=== PATIENT | male | born 1950 | race Caucasian/White ===

== ENCOUNTER → 2019-03-06 | Day surgery (SDC) | payer MEDICARE, OTHER ==
[2019-03-02 17:02] LABS: BASOPHILS # (AUTO) 0.1 (0.0-0.1); BASOPHILS % 1.3 % (0.0-1.0); EOSINOPHILS # (AUTO) 0.2 (0.0-0.4); EOSINOPHILS % 2.8 % (0.0-6.0); HEMATOCRIT 43.2 % (38.2-49.6); HEMOGLOBIN 14.7 g/dL (14.0-18.0); LYMPHOCYTES # (AUTO) 1.5 (1.0-3.2); LYMPHOCYTES % 21.8 % (18.0-39.1); MEAN CORPUSCULAR HEMOGLOBIN 30.2 pg (28-32); MEAN CORPUSCULAR VOLUME 88.7 fL (81-99); MONOCYTES # (AUTO) 0.7 (0.2-0.8); MONOCYTES % 9.6 % (4.4-11.3); NEUTROPHILS # (AUTO) 4.5 (2.1-6.9); NEUTROPHILS % 64.2 % (38.7-80.0); PLATELET COUNT 249 x10e3/uL (140-360); RED BLOOD COUNT 4.87 x10e6/uL (4.3-5.7); RED CELL DISTRIBUTION WIDTH 12.7 % (11.7-14.4)
[2019-03-02 17:21] LABS: ANION GAP 16.7 mmol/L (8-16); BLOOD UREA NITROGEN 9 mg/dL (7-26); BUN/CREATININE RATIO 11 (6-25); CARBON DIOXIDE 26 mmol/L (22-29); CHLORIDE 99 mmol/L (98-107); CREATININE, SERUM 0.82 mg/dL (0.72-1.25); EST GLOMERULAR FILTRATION RATE > 60 ML/MIN (60-); GLUCOSE 102 mg/dL (74-118); POTASSIUM 3.7 mmol/L (3.5-5.1); SODIUM 138 mmol/L (136-145)
[~2019-03-06] MED LIST: AZOR 10-20 MG1 EACH PO; BUPIVACAINE HCL 0.5% INJ 30 ML VIAL INJ ONE; CARVEDILOL12.5 MG PO; CEFAZOLIN SOD 1 GM/NS 50ML 50 ML IV ONE; DEXAMETHASONE SOD PHOS INJ 4 MG/ML VIAL ONE; EFFIENT10 MG PO; EPHEDRINE SULFATE INJ 50 MG/10 ML SYR ONE; FENTANYL CITRATE/PF 100MCG/2 ML INJ ONE; HYDROCHLOROTH12.5 M1 PO; HYDROMORPHONE 2MG/ML 2 MG/ML ML ONE; LEVOTHYROXINE50 MCG PO; LIDOCAINE HCL 2% LOCAL INJ 5 ML SDV VIAL INJ ONE; ONDANSETRON HCL INJ 2MG/ML 2ML 2 MG/ML VIAL ONE; PRAVASTATIN SOD40 MG PO; PROPOFOL IV EMULSION 10 MG/ML 20 ML VIAL ONE; SEVOFLURANE INHAL SOLN 250 ML PEN BTL ONE
[2019-03-06 08:30] VITALS: BP 131/82
--- NOTE | 2019-03-06 09:28 | Operative Report ---
DATE OF PROCEDURE: SURGEON: Mare Arciniega DPM VACUUM DRUM DRIER OPERATOR SURGEON: Mohammed. Mal Arce DPM PREOPERATIVE DIAGNOSES: 1. Left anterior talofibular ligament rupture. 2. Left calcaneofibular ligament rupture. POSTOPERATIVE DIAGNOSES: 1. Left anterior talofibular ligament rupture. 2. Left calcaneofibular ligament rupture. PLANNED PROCEDURE: Left ankle Brostrom with excision of fracture fragment. VACUUM DRUM DRIER OPERATOR: Jocelyn Arce DPM. ANESTHESIA: General with a postoperative block consisting of 10 mL of 0.5% Marcaine plain mixed with 1 mL of dexamethasone phosphate. HEMOSTASIS: Pneumatic thigh tourniquet set at 350 mmHg for a total time of approximately 30 minutes. MATERIALS: One G2 bone anchor, 3-0 Vicryl, 4-0 nylon. ESTIMATED BLOOD LOSS: Less than 10 mL. PATHOLOGY: None. PROCEDURE NOTE: The patient was seen in the preoperative waiting room. The correct procedure and site was identified. The patient was brought to the operating room, placed on the operating table in supine position. General anesthesia was initiated. At this time, a well-padded pneumatic tourniquet was placed about the patient's left thigh. The left foot, ankle, and leg were then scrubbed, prepped, and draped in the usual aseptic manner. The left foot, ankle, and leg were exsanguinated with an Esmarch bandage and the pneumatic thigh tourniquet was inflated to 350 mmHg for a total time of approximately 30 minutes. Attention was directed to the lateral aspect of the patient's left ankle where a reverse J incision was made starting at the anterior aspect of the fibula extending inferiorly along the inferior border of the fibula. Incision was carried through subcutaneous tissue this from the deep underlying structures. All vital neurovascular structures were identified and retracted medially and laterally. All bleeders were cauterized or ligated as deemed necessary. At this time, along the same course of the incision, a capsular incision was made through the anterior talofibular and calcaneofibular ligaments. It was noted that there was a large bony fragment within the calcaneofibular ligament, which was excised and passed off to the back table. The wound was then copiously irrigated with sterile saline. Next, per manufacture protocol, one G two bone anchor was placed in the fibula and the anterior talofibular ligament as well as the ankle capsule was reapproximated in anatomic tension. The CFL was also reapproximated with 0 Ethibond. The retinaculum as well as the extensor capsule was oversewn in a bkief-vrhc-bmeu fashion. The subcutaneous tissue was reapproximated with 3-0 Vicryl. The skin was closed using simple interrupted sutures with 4-0 nylon. The incision site was dressed with Betadine-soaked Adaptic, 4x4s, Kerlix, , 4 x 30 posterior splint, 4 inch Samm wrap, and a 6-inch Samm wrap. The patient tolerated the procedure and anesthesia well. The patient was transferred to the postop recovery room with vital signs stable and vascular status intact. The patient was monitored there for a short period of time before being sent home with the following written and oral instructions: 1. Keep the dressing clean, dry, and intact. 2. The patient is to remain nonweightbearing to the left lower extremity to avoid any ambulation until being seen in the office. 3. The patient is given the office number to try to contact us if any problems arise. Dictated by Jocelyn Arce DPM S JAYDEN Isidro (Charley)/TYESHA /[id number] TK
== END | disposition home or self-care (01) ==
LOC: OR 05:11
PROVIDERS: ATTEND Podiatrist Foot & Ankle Surgery
DX: S93.492A Sprain of other ligament of left ankle, initial encounter (principal); S93.412A Sprain of calcaneofibular ligament of left ankle, initial encounter; S82.402A Unspecified fracture of shaft of left fibula, initial encounter for closed fracture; I25.10 Atherosclerotic heart disease of native coronary artery without angina pectoris; I11.0 Hypertensive heart disease with heart failure; I50.9 Heart failure, unspecified; E03.9 Hypothyroidism, unspecified; E78.00 Pure hypercholesterolemia, unspecified; F17.210 Nicotine dependence, cigarettes, uncomplicated; X58.XXXA Exposure to other specified factors, initial encounter; Z01.812 Encounter for preprocedural laboratory examination; Z95.5 Presence of coronary angioplasty implant and graft
CPT/HCPCS: 27696; 36415; 80048; 85025; C1713; J0690; J1100; J1170; J2001; J2405; J2704; J3010

== ENCOUNTER 2019-07-10 07:26 | Observation (INO) | payer MEDICARE, OTHER ==
--- NOTE | 2019-07-09 10:23 | Diagnostic Imaging Report ---
Chest, PA and lateral. History: Preoperative evaluation for knee surgery. Comparison: None available. Discussion: The cardiomediastinal silhouette and pulmonary vasculature are within normal limits. The lungs are clear without evidence of consolidation or effusion. There are mild degenerative changes of the thoracic spine. IMPRESSION: No acute cardiopulmonary abnormality. Signed by: Kirby Emerson MD on 07/09/2019 10:20 AM
[2019-07-09 10:27] LABS: BASOPHILS # (AUTO) 0.1 (0.0-0.1); BASOPHILS % 0.9 % (0.0-1.0); EOSINOPHILS # (AUTO) 0.2 (0.0-0.4); EOSINOPHILS % 3.1 % (0.0-6.0); HEMATOCRIT 41.3 % (38.2-49.6); HEMOGLOBIN 13.9 g/dL (14.0-18.0); LYMPHOCYTES # (AUTO) 1.3 (1.0-3.2); LYMPHOCYTES % 19.5 % (18.0-39.1); MEAN CORPUSCULAR HEMOGLOBIN 30.5 pg (28-32); MEAN CORPUSCULAR HGB CONC 33.7 g/dL (31-35); MEAN CORPUSCULAR VOLUME 90.8 fL (81-99); MONOCYTES # (AUTO) 0.6 (0.2-0.8); MONOCYTES % 8.2 % (4.4-11.3); NEUTROPHILS # (AUTO) 4.7 (2.1-6.9); NEUTROPHILS % 67.9 % (38.7-80.0); PLATELET COUNT 251 x10e3/uL (140-360); RED BLOOD COUNT 4.55 x10e6/uL (4.3-5.7); RED CELL DISTRIBUTION WIDTH 12.5 % (11.7-14.4)
[~2019-07-10] VITALS: Ht 172.7 cm; Wt 99.9 kg
[~2019-07-10 07:26] MED LIST changes: +BACITRACIN 50,000 UNIT VIAL ONE; -BUPIVACAINE HCL 0.5% INJ 30 ML VIAL INJ ONE; -CEFAZOLIN SOD 1 GM/NS 50ML 50 ML IV ONE; -DEXAMETHASONE SOD PHOS INJ 4 MG/ML VIAL ONE; -EPHEDRINE SULFATE INJ 50 MG/10 ML SYR ONE; -FENTANYL CITRATE/PF 100MCG/2 ML INJ ONE; +GABAPENTIN300 MG PO; -HYDROMORPHONE 2MG/ML 2 MG/ML ML ONE; -LIDOCAINE HCL 2% LOCAL INJ 5 ML SDV VIAL INJ ONE; -ONDANSETRON HCL INJ 2MG/ML 2ML 2 MG/ML VIAL ONE; -PROPOFOL IV EMULSION 10 MG/ML 20 ML VIAL ONE; -SEVOFLURANE INHAL SOLN 250 ML PEN BTL ONE; +SODIUM CHLORIDE 0.9% 500ML 500 ML ONE; +TRANEXAMIC ACID 1,000 MG/10 ML ML ONE; +VANCOMYCIN HCL 1,000 MG ONE
[2019-07-10] MEDS ORDERED: ROPIVACAINE 246.25 MG, EPINEPHRINE HCL 1:1000 1ML 0.5 MG, CLONIDINE HCL 0.08 MG, KETORO... INJ ONE ×5 (07:30)
[2019-07-10] MEDS ORDERED: CEFAZOLIN SOD 1 GM/NS 50ML 100 ML IV ONE (07:46)
[2019-07-10] MEDS ORDERED: CELECOXIB 200 MG CAP ONE (07:46)
[2019-07-10] MEDS ORDERED: DEXAMETHASONE SOD PHOS 10 MG/1 ML VIAL ONE (07:47)
[2019-07-10] MEDS ORDERED: GABAPENTIN 300 MG CAP ONE (07:47)
[2019-07-10] MEDS ORDERED: HYDROCODONE/APAP 5MG-325MG TAB PO PRN (11:00)
[2019-07-10] MEDS ORDERED: ACETAMINOPHEN 650 MG SUPP PR PRN (11:00)
[2019-07-10] MEDS ORDERED: PROMETHAZINE HCL (IM) 25 MG/ML VIAL INJ PRN (11:00)
[2019-07-10] MEDS ORDERED: DIPHENHYDRAMINE HCL INJ 50 MG/ML VIAL IM/IV PRN (11:00)
[2019-07-10] MEDS ORDERED: KETOROLAC TROMETHAMINE 30 MG/ML VIAL IV PRN (11:00)
[2019-07-10] MEDS ORDERED: DOCUSATE SODIUM 100 MG CAP PO PRN (11:00)
[2019-07-10] MEDS ORDERED: HYDROMORPHONE 2MG/ML 2 MG/ML ML ONE (11:22)
--- NOTE | 2019-07-10 12:36 | Diagnostic Imaging Report ---
EXAM: KNEE LEFT 1-2 VIEWS DATE: 07/10/2019 10:56 AM INDICATION: Postop COMPARISON: None FINDINGS: There are postsurgical changes of recent total knee replacement. Hardware appears intact and in anatomic alignment. There is no evidence for acute fracture or dislocation. There is expected subcutaneous emphysema and suspected small joint effusion present. Overlying skin rachael noted. IMPRESSION: Expected postsurgical changes from recent left knee arthroplasty. Signed by: Dr. Leroy Chau MD on 07/10/2019 12:33 PM
[2019-07-10] MEDS ORDERED: LIDOCAINE HCL 2% LOCAL 20 ML VIAL ONE (12:58)
[2019-07-10] MEDS ORDERED: ROPIVACAINE 0.5% 5 MG/ML 30 ML SDV ONE (12:58)
[2019-07-10] MEDS ORDERED: FENTANYL CITRATE/PF 100MCG/2 ML INJ ONE (13:07)
--- NOTE | 2019-07-10 14:32 | NUR ---
RECEIVED PATIENT FROM PACU. PATIENT A/O X3, EVEN RESPIRATIONS ON 2LNC. LUNG SOUNDS CLEAR TO AUSCULTATION. LEFT KNEE DRESSING CLEAN, DRY, AND INTACT. TAO WRAP TO LEFT LEG. ORA HOSE TO RIGHT LEG. FOOT PUMPS BILATERALLY. LEFT HAND 20 GAUGE IV WITH NS @ 100 CC/HR. NO PAIN AT THIS TIME. PATIENT DUE TO VOID. ORIENTED PATIENT TO ROOM AND CALL LIGHT. BED LOW, WHEELS LOCKED, SIDE RAILS X2. CALL LIGHT IN REACH WILL CONTINUE TO MONITOR PATIENT.
[2019-07-10] MEDS ORDERED: ACETAMINOPHEN 1000 MG/100 ML IV SCH (15:00)
[2019-07-10 15:09] VITALS: BP 122/86
[2019-07-10 15:12] VITALS: BP 122/86
--- NOTE | 2019-07-10 15:14 | NUR ---
PATIENT HAS VOIDED SINCE SURGERY.
[2019-07-10] MEDS: CEFAZOLIN SOD 1 GM/NS 50ML 50 ML IV SCH ×2 (15:58→21:48)
[2019-07-10] MEDS: SODIUM CHLORIDE 0.9% 1000ML 1,000 ML IV SCH ×2 (15:58→20:56)
[2019-07-10 15:59] VITALS: BP 122/86
[2019-07-10] MEDS: CELECOXIB 100 MG CAP PO SCH (16:06)
[2019-07-10] MEDS: ASPIRIN 325 MG TAB PO SCH (16:06)
--- NOTE | 2019-07-10 17:29 | Operative Report ---
DATE OF PROCEDURE: 07/10/2019 SURGEON: Heriberto Davis MD HEALTH COORDINATOR: Roberto Nascimento, certified PA. PREOPERATIVE DIAGNOSIS: Osteoarthritis, left knee. POSTOPERATIVE DIAGNOSIS: Osteoarthritis, left knee. PROCEDURE: Left total knee arthroplasty. INDICATIONS: The patient is a 69-year-old gentleman with end-stage arthritis of his left knee. The findings and options have been discussed. He has failed conservative management and would like to proceed with a left total knee replacement. The risks and benefits have been discussed at length. All of his questions have been answered. He states he understands and wishes to proceed. PROCEDURE IN DETAIL: The patient was brought to the operating room and placed under general anesthetic. He received prophylactic antibiotics, a regional block, and tranexamic acid in the holding area. His left lower extremity was prepped and draped in a sterile manner. A preoperative time-out was performed. The extremity was exsanguinated and a proximal tourniquet was inflated to 300 mmHg. An anterior incision with a medial parapatellar arthrotomy was performed. Clear synovial fluid was removed from the joint. Soft tissue releases were performed to bring the knee up into flexion with the patella everted. Meniscal remnants, marginal osteophytes, and the cruciate ligaments were removed. A Tellez and NephiMeigu knee system was used throughout the case. An extramedullary cutting guide was used to resect the proximal tibia. The tibial base plate was a size #4. The central fin punch was impacted and attention was directed towards the distal femur. An intramedullary cutting guide was used to resect the distal femur in 6 degrees of valgus and rotation referencing off a combination of landmarks including Whitesides line, the epicondylar axis, and the posterior condyles. The femoral component was sized at size #5 component. The anterior and posterior cuts were made. A trial reduction was performed. A 9 mm ultracongruent tibial insert provided appropriate soft tissue balancing and stability in full extension and 90 degrees of flexion. The patella was resurfaced with a 29 mm x 7.5 mm patellar button. The thickness was checked before and after, and was right at 23 mm. Patellar tracking was concentric. The trial implants were then all removed. A 100 mL premixed pericapsular FELICE injection was placed into the surrounding soft tissue. The knee was thoroughly irrigated with a shower tip pulsatile lavage. All bone cuts had been irrigated with a spray mixture of diluted polymyxin and vancomycin spray. The components were cemented into place using a single mix of Palacos cement, preloaded with antibiotics. Care was taken to remove extravasated cement. The wound was further irrigated while the cement cured. The arthrotomy was then closed with #1 Ethibond in interrupted fashion. A 500 mg of vancomycin powder was sprinkled into the deep wound prior to closure. The knee was put through flexion and extension to ensure a secure closure. The skin was closed with subcuticular Vicryl and rachael. A sterile Aquacel bandage was applied. The patient was extubated and transported to the recovery room in stable condition. Blood loss was minimal. All needle and sponge counts were correct. Heriberto Davis MD DR/TYESHA /[id number]
--- NOTE | 2019-07-10 18:10 | NUR ---
PLACED PATIENT ON CPM AT 50. PATIENT TOLERATING WELL.
[2019-07-10] MEDS ORDERED: ONDANSETRON HCL INJ 2MG/ML 2ML 2 MG/ML VIAL ONE (18:11)
[2019-07-10] MEDS ORDERED: LIDOCAINE HCL 2% LOCAL INJ 5 ML SDV VIAL INJ ONE (18:11)
[2019-07-10] MEDS ORDERED: SEVOFLURANE INHAL SOLN 250 ML PEN BTL ONE (18:11)
[2019-07-10] MEDS ORDERED: ROCURONIUM BROMIDE 10 MG/ML 5ML VIAL ONE (18:11)
[2019-07-10] MEDS ORDERED: ESMOLOL HCL 100MG/10ML 10 MG/ML VIAL ONE (18:11)
[2019-07-10] MEDS ORDERED: NEOSTIGMINE 1 MG/ML 10ML VIAL ONE (18:11)
[2019-07-10] MEDS ORDERED: EPHEDRINE SULFATE INJ 50 MG/ML VIAL ONE (18:11)
[2019-07-10] MEDS ORDERED: DEXAMETHASONE SOD PHOS INJ 4 MG/ML VIAL ONE (18:11)
[2019-07-10] MEDS ORDERED: PROPOFOL IV EMULSION 10 MG/ML 20 ML VIAL ONE (18:11)
[2019-07-10] MEDS ORDERED: ATROPINE SULFATE 1 MG/ML VIAL ONE (18:11)
[2019-07-10] MEDS ORDERED: GLYCOPYRROLATE INJ 0.2 MG/ML VIAL ONE (18:11)
[2019-07-10] MEDS: GABAPENTIN 300 MG CAP PO SCH (18:40)
[2019-07-10 19:30] VITALS: BP 142/88
--- NOTE | 2019-07-10 19:56 | NUR ---
Assessment done.no resp.distress.pain voiced 10/08.on cpm @50.tolerate well.uses ics.bed locked and in lowest position.phone and call light within reach.instructed to call for assistance as needed.
[2019-07-10 20:33] VITALS: BP 142/88
[2019-07-10] MEDS ORDERED: ZOLPIDEM TARTRATE 5 MG TAB PO PRN (21:00)
[2019-07-10] MEDS: ACETAMINOPHEN 1000 MG/100 ML IV SCH (21:09)
[2019-07-10] MEDS: ONDANSETRON HCL INJ 2MG/ML 2ML 2 MG/ML VIAL IV PRN (22:14)
--- NOTE | 2019-07-10 22:14 | NUR ---
Has nausea.medicated with zofran 4mg iv.keep monitor the patient.
[2019-07-11] VITALS: BP 134/77
[2019-07-11] MEDS: ACETAMINOPHEN 1000 MG/100 ML IV SCH ×2 (03:28→05:18)
[2019-07-11 04:00] VITALS: BP 148/95
[2019-07-11] MEDS: CEFAZOLIN SOD 1 GM/NS 50ML 50 ML IV SCH (05:03)
[2019-07-11] MEDS: SODIUM CHLORIDE 0.9% 1000ML 1,000 ML IV SCH (05:18)
[2019-07-11 05:37] LABS: HEMATOCRIT 35.7 % (38.2-49.6); HEMOGLOBIN 12.4 g/dL (14.0-18.0)
[2019-07-11] MEDS: ONDANSETRON HCL INJ 2MG/ML 2ML 2 MG/ML VIAL IV PRN (05:43)
[2019-07-11] MEDS ORDERED: CHLORASEPTIC SPRAY 177 ML BTL MM PRN (05:45)
[2019-07-11] MEDS ORDERED: BISACODYL 5 MG TAB EC PO PRN (05:45)
[2019-07-11] MEDS ORDERED: GUAIFENESIN 600 MG TAB PO PRN (05:45)
[2019-07-11] MEDS ORDERED: ALBUTEROL/IPRATROPIUM 3 ML NEB NEB PRN (05:45)
--- NOTE | 2019-07-11 06:00 | NUR ---
PUT CPM ON @ 50 FLEXION DEGREE.TOLERATE WELL.
[2019-07-11 06:12] LABS: ANION GAP 13.5 mmol/L (8-16); BLOOD UREA NITROGEN 10 mg/dL (7-26); BUN/CREATININE RATIO 12 (6-25); CARBON DIOXIDE 27 mmol/L (22-29); CHLORIDE 93 mmol/L (98-107); CREATININE, SERUM 0.82 mg/dL (0.72-1.25); EST GLOMERULAR FILTRATION RATE > 60 ML/MIN (60-); GLUCOSE 145 mg/dL (74-118); POTASSIUM 3.5 mmol/L (3.5-5.1); SODIUM 130 mmol/L (136-145)
[2019-07-11 06:20] LABS: BASOPHILS % 0.1 % (0.0-1.0); HEMATOCRIT 37.2 % (38.2-49.6); HEMOGLOBIN 12.6 g/dL (14.0-18.0); LYMPHOCYTES # (AUTO) 1.1 (1.0-3.2); LYMPHOCYTES % 6.9 % (18.0-39.1); MEAN CORPUSCULAR HEMOGLOBIN 30.4 pg (28-32); MEAN CORPUSCULAR HGB CONC 33.9 g/dL (31-35); MEAN CORPUSCULAR VOLUME 89.6 fL (81-99); MONOCYTES % 6.2 % (4.4-11.3); NEUTROPHILS # (AUTO) 13.9 (2.1-6.9); NEUTROPHILS % 86.4 % (38.7-80.0); PLATELET COUNT 240 x10e3/uL (140-360); RED BLOOD COUNT 4.15 x10e6/uL (4.3-5.7); RED CELL DISTRIBUTION WIDTH 12.2 % (11.7-14.4)
--- NOTE | 2019-07-11 07:00 | NUR ---
Bed side shift report given to the on coming Rn.stable condition.
[2019-07-11] MEDS ORDERED: FAMOTIDINE 20 MG TAB PO SCH (07:30)
[2019-07-11] MEDS ORDERED: LEVOTHYROXINE SODIUM 50 MCG TAB PO SCH (07:30)
[2019-07-11 08:00] VITALS: BP 156/85
[2019-07-11 08:11] VITALS: BP 156/85
[2019-07-11] MEDS: CELECOXIB 100 MG CAP PO SCH (08:31)
[2019-07-11] MEDS: CARVEDILOL 12.5 MG TAB PO SCH ×2 (08:31→16:43)
[2019-07-11] MEDS: DOCUSATE SODIUM 100 MG CAP PO SCH ×2 (08:31→16:43)
[2019-07-11] MEDS: ASPIRIN 325 MG TAB PO SCH ×2 (08:31→16:42)
[2019-07-11] MEDS: HYDROCODONE/APAP 7.5MG-325MG 1 EA TAB PO PRN ×3 (08:33→18:28)
[2019-07-11] MEDS: GABAPENTIN 300 MG CAP PO SCH ×2 (08:42→16:39)
[2019-07-11] MEDS ORDERED: AMLODIPINE BESYLATE 10 MG TAB PO SCH (09:00)
[2019-07-11] MEDS ORDERED: HYDROCHLOROTHIAZIDE 25 MG TAB PO SCH (09:00)
--- NOTE | 2019-07-11 10:18 | NUR ---
Order received for home health and DME. Spoke with patient, he is declining home health d/t issues with his home and shame about someone coming in his messy home. Discussion with patient had about the important need for some sort of rehab so he can regain his mobility. Offered outpatient PT as another option. Patient is agreeable to this. Spoke with Roberto Fajardo PA-C who states he is having his office send an order for outpatient PT to [facility]. Addendum: 07/11/19 at 1025 by Hilda Corrales CM Outpatient PT has not received order yet, will follow up at 1
--- NOTE | 2019-07-11 10:43 | NUR ---
MICHELLE EXPLAINED TO PATIENT, PATIENT SIGNED, COPY TO PATIENT, COPY TO CHART
[2019-07-11 11:53] VITALS: BP 139/77
[2019-07-11] MEDS ORDERED: ACETAMINOPHEN 1000 MG/100 ML IV PRN (12:00)
--- NOTE | 2019-07-11 13:00 | NUR ---
Patient seen again, this cm spoke with orlando hernandez and it was decided the best outcome would happen if the patient went to inpatient rehab since he doesnt have reliable transportation to outpatient rehab and he is refusing home health. Spoke to patient, he chooses for clinicals to be sent to [facility]. MOT started, rep notified, packet created. Addendum: 07/11/19 at 1534 by Hilda Corrales CM notified lou hogue of phone number to call report [phone]
[2019-07-11 15:54] VITALS: BP 129/77
--- NOTE | 2019-07-11 15:59 | NUR ---
spoke to kaye with [employer], he states unable to dispense equipment until patient has d/c'd. Equipment to case management office.
--- NOTE | 2019-07-11 16:30 | NUR ---
Report called to Caryn at [facility]. Pt is to be discharged today for inpatient rehab s/p left total knee replacement.
[2019-07-11] MEDS ORDERED: CELECOXIB 200 MG CAP PO SCH (17:00)
--- NOTE | 2019-07-11 18:59 | NUR ---
WALKING ROUNDS PERFORMED, RECEIVED PT LAYING SEMI FOWLERS IN BED, AAOX3, RR EVEN AND NON-LABORED, ON ROOM AIR. NO S/SX OF DISTRESS NOTED. LEFT PT LAYING SEMI FOWLERS IN BED, BED IN LOW LOCKED POSITION, SIDE RAILS UPX2, CALL LIGHT AND PHONE WITHIN REACH.
--- NOTE | 2019-07-11 19:25 | NUR ---
EMS ARRIVED TO TRANSPORT PT TO [facility].
--- NOTE | 2019-07-11 19:35 | NUR ---
PT D/C BY STRETCHER AND EMS TO [facility], PT IN STABLE CONDITION. NO S/SX OF DISTRESS NOTED. BELONGINGS WITH PT.
[2019-07-11] MEDS ORDERED: SIMVASTATIN 20 MG TAB PO SCH (21:00)
--- OUTSIDE RECORDS SUMMARY | 2019-07-20 10:20 | XMS REPORT ---
Author Author [facility] Address Unknown Phone Unavailable Care Team Providers Care Airfield Engineer Officer Name Role Phone ANDREIA PINK Unavailable Unavailable Problems This patient has no known problems. Allergies, Adverse Reactions, Alerts This patient has no known allergies or adverse reactions. Medications This patient has no known medications. Results Test Description Test Time Test Comments Text Results Atomic Results Result Comments KNEE LEFT 1-2 VIEWS 2019-07-10 12:32:00 [place] [address] Patient Name: CRUZ MARTIN MR #: [id number] : 1950 Age/Sex: 69/M Req #: [id number] [facility] Physician: ANDREIA PINK MD Ordered by: ANDREIA PINK MD Report #: [id number] Location: PACU V Room/Bed: PACU-1 Procedure: [id number] DX/KNEE LEFT 1-2 VIEWS Exam Date: 07/10/19 Exam Time: 1120 REPORT STATUS: Signed EXAM: KNEE LEFT 1-2 VIEWS DATE: 07/10/2019 10:56 AM INDICATION: Postop COMPARISON: None FINDINGS: There are postsurgical changes of recent total knee replacement. Hardware appears intact and in anatomic alignment. There is no evidence for acute fracture or dislocation. There is expected subcutaneous emphysema and suspected small joint effusion present. Overlying skin rachael noted. IMPRESSION: Expected postsurgical changes from recent left knee arthroplasty. Signed by: Dr. Leroy Chau MD on 07/10/2019 12:33 PM Dictated By: LEROY CHAU MD 1233 Transcribed By: ALBINA on 07/10/19 1233 COPY TO: ANDREIA PINK MD CHEST 2 VIEWS 2019-07-09 10:19:00 [place] [address] Patient Name: CRUZ MARTIN MR #: [id number] : 1950 Age/Sex: 69/M Req #: [id number] Adm Physician: Ordered by: ANDREIA PINK MD Report #: [id number] Location: OR Room/Bed: Procedure: [id number] DX/CHEST 2 VIEWS Exam Date: 07/09/19 Exam Time: 1005 REPORT STATUS: Signed Chest, PA and lateral. History: Preoperative evaluation for knee surgery. Comparison: None available. Discussion: The cardiomediastinal silhouette and pulmonary vasculature are within normal limits. The lungs are clear without evidence of consolidation or effusion. There are mild degenerative changes of the thoracic spine. IMPRESSION: No acute cardiopulmonary abnormality. Signed by: Kirby Callahan MD on 07/09/2019 10:20 AM Dictated By: KIRBY CALLAHAN MD 1020 Transcribed By: ALBINA on 07/09/19 1020 COPY TO: ANDREIA PINK MD
== END 2019-07-11 19:39 ==
LOC: OR 07:26 → PACU V 10:58 → MED/SURG 14:34
PROVIDERS: ADMIT Specialist; ATTEND Specialist
DX: M17.12 Unilateral primary osteoarthritis, left knee (principal); I25.10 Atherosclerotic heart disease of native coronary artery without angina pectoris; J44.9 Chronic obstructive pulmonary disease, unspecified; I11.0 Hypertensive heart disease with heart failure; I50.9 Heart failure, unspecified; Z95.5 Presence of coronary angioplasty implant and graft
CPT/HCPCS: 27447; 36415 ×2; 71046; 73560; 80048; 84443; 85014; 85018; 85025 ×2; 86850; 86900; 97116; 97139; 97161; 97530 ×2; C1713; G0378 ×2; J0131 ×2; J0171; J0461; J0690 ×2; J1100 ×2; J1170; J1885; J2001; J2405 ×2; J2550; J2704; J2710; J2795; J3370; J7030; J7040; J3010

== ENCOUNTER 2019-09-28 12:58 | Outpatient (RCR) | payer MEDICARE, OTHER ==
[~2019-09-28 12:58] MED LIST changes: -BACITRACIN 50,000 UNIT VIAL ONE; -SODIUM CHLORIDE 0.9% 500ML 500 ML ONE; -TRANEXAMIC ACID 1,000 MG/10 ML ML ONE; -VANCOMYCIN HCL 1,000 MG ONE
== END 2019-09-29 ==
LOC: PT 12:58
PROVIDERS: ATTEND Specialist
DX: Z96.652 Presence of left artificial knee joint (principal); M25.562 Pain in left knee; M25.662 Stiffness of left knee, not elsewhere classified; R26.2 Difficulty in walking, not elsewhere classified; M62.81 Muscle weakness (generalized)
CPT/HCPCS: 97139

== ENCOUNTER 2019-10-12 13:00 | Outpatient (RCR) | payer MEDICARE, OTHER | END 2019-10-30 | LOC: PT 13:00 | PROVIDERS: ATTEND Specialist | DX: Z96.652 Presence of left artificial knee joint (principal); M62.81 Muscle weakness (generalized); M25.562 Pain in left knee; R26.2 Difficulty in walking, not elsewhere classified; M25.662 Stiffness of left knee, not elsewhere classified | CPT/HCPCS: 97139 ==